=== PATIENT | male | born 1995 | race Caucasian/White ===

== ENCOUNTER 2018-06-29 01:50 | Emergency (ER) | payer SELFPAY ==
[2018-06-29 02:23] VITALS: BP 95/55; PULSE 83; TEMP 98.2; BMI 21.7
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
[2018-06-29] MEDS ORDERED: SODIUM CHLORIDE 1,000 ML IV STA (02:24)
--- NOTE | 2018-06-29 02:38 | PDOC ---
*Physical Exam - Vital Signs Last Vital Signs Temp Pulse Resp BP Pulse Ox 98.2 F 83 18 95/55 L 98 06/29/18 01:50 06/29/18 01:50 06/29/18 01:50 06/29/18 01:50 06/29/18 01:50 Medical Decision Making - Medical Decision Making 06/29/18 02:53 Patient seen by the advanced practice provider under my direct supervision. Ancillary testing reviewed as necessary. I agree with plan as outlined by the advanced practice provider. *DC/Admit/Observation/Transfer Diagnosis at time of Disposition: Closed head injury Qualifiers: Encounter type: initial encounter Qualified Code(s): S09.90XA - Unspecified injury of head, initial encounter Scalp laceration Qualifiers: Encounter type: initial encounter Qualified Code(s): S01.01XA - Laceration without foreign body of scalp, initial encounter Laceration of eyebrow, left Qualifiers: Encounter type: initial encounter Qualified Code(s): S01.112A - Laceration without foreign body of left eyelid and periocular area, initial encounter - Discharge Dispostion Disposition: HOME Condition at time of disposition: Fair - Referrals - Patient Instructions Printed Discharge Instructions: DI for Closed Head Injury Additional Instructions: Keep wound clean and dry Avoid strenuous activity/exercise to create a hot or sweaty environment until sutures are removed Reapply bacitracin ointment 2 times a day until sutures are removed Return to emergency Department or private physician in 5-7 days for suture removal May use Tylenol or Motrin for pain relief Return immediately to emergency department for redness, swelling, pain, or signs of infection Staple removal in 5-7 days - Post Discharge Activity
== END 2018-06-29 04:24 | disposition home or self-care (01) ==
LOC: JER 01:50
PROC: 0HQ1XZZ Repair Face Skin, External Approach (ICD-10-PCS; principal; 2018-06-29)
DX: S09.90XA Unspecified injury of head, initial encounter (principal); S01.112A Laceration without foreign body of left eyelid and periocular area, initial encounter; S01.01XA Laceration without foreign body of scalp, initial encounter; Y04.2XXA Assault by strike against or bumped into by another person, initial encounter; Y93.9 Activity, unspecified; Y92.9 Unspecified place or not applicable
CPT/HCPCS: 70450-TC; 72125-TC; 99284-25

== ENCOUNTER 2018-07-09 15:14 | Emergency (ER) | payer SELFPAY ==
[2018-07-09 15:21] VITALS: BP 117/67; PULSE 83; TEMP 98.2; BMI 21.1
--- NOTE | 2018-07-09 15:58 | PDOC ---
Suture Removal/Wound Check HPI - History of Present Illness Chief Complaint: Suture/Staple Removal(Here) Stated Complaint: STITCHES REMOVAL Time Seen by Provider: 07/09/18 15:32 History Source: Yes: Patient Exam Limitations: Yes: No Limitations - Previous ED Treatment Type of procedure performed on last visit: Yes: Laceration Repair Tetanus Immunization: Yes: Up to Date - Onset of Previous Treatment Date of Occurence: 07/05/18 Past History - Travel Traveled outside of the country in the last 30 days: No Close contact w/someone who was outside of country & ill: No - Past Medical History Allergies/Adverse Reactions: Allergies Allergy/AdvReac Type Severity Reaction Status Date / Time No Known Allergies Allergy Verified 06/29/18 02:18 Home Medications: Ambulatory Orders NK [No Known Home Medication] 06/29/18 COPD: No - Suicide/Smoking/Psychosocial Hx Smoking History: Current every day smoker Have you smoked in the past 12 months: No Number of Cigarettes Smoked Daily: 10 Information on smoking cessation initiated: No Hx Alcohol Use: No Drug/Substance Use Hx: No Suture Removal/Wound Check PE - Physical Exam Laceration/Wound Check Symptoms: reports: None Current Severity Level: None Maximum Severity Level: None Pain Localization: None Location of Laceration/Wound: left: Eye Pain Radiation: None *Review of Systems - Review of Systems Able to Perform ROS?: Yes Constitutional: No: Chills, Fever, Loss of Appetite HEENTM: Yes: Other (5 sutures above left eye below eyebrow. 5 poornima to scal left side of head) Respiratory: No: Cough, Orthopnea, Shortness of Breath, Wheezing, Productive cough Cardiac (ROS): No: Chest Pain, Lightheadedness, Palpitations : No: Dysuria, Urgency Neurological: No: Headache, Numbness, Paresthesia, Ataxia *Physical Exam - Vital Signs Last Vital Signs Temp Pulse Resp BP Pulse Ox 98.2 F 83 15 117/67 98 07/09/18 15:18 07/09/18 15:18 07/09/18 15:18 07/09/18 15:18 07/09/18 15:18 - Physical Exam General Appearance: Yes: Nourished, Appropriately Dressed. No: Apparent Distress HEENT: positive: EOMI, TMs Normal, Pharynx Normal Neck: positive: Supple. negative: Lymphadenopathy (R), Lymphadenopathy (L) Respiratory/Chest: positive: Lungs Clear, Normal Breath Sounds Cardiovascular: positive: Regular Rate, S1, S2 Extremity: positive: Normal Capillary Refill Moderate Sedation - Procedure Monitoring Vital Signs: Procedure Monitoring Vital Signs Temperature 98.2 F 07/09/18 15:18 Pulse Rate 83 07/09/18 15:18 Respiratory Rate 15 07/09/18 15:18 Blood Pressure 117/67 07/09/18 15:18 O2 Sat by Pulse Oximetry (%) 98 07/09/18 15:18 Medical Decision Making - Medical Decision Making 07/09/18 15:57 23 year old male here for suture and poornima removal 5 poornima removed from left side of scalp, no drainage, wound well approximated 5 sutures removed from below eye brow above left eye , no drainage or redness noted *DC/Admit/Observation/Transfer Diagnosis at time of Disposition: Visit for suture removal, Encounter for removal of poornima - Discharge Dispostion Disposition: HOME Condition at time of disposition: Good Decision to Admit order: No - Referrals - Patient Instructions Printed Discharge Instructions: DI for Suture Removal Additional Instructions: Wash face gently with soap and water Return for drainage and redness at site - Post Discharge Activity Forms/Work/School Notes: Back to Work
== END 2018-07-09 16:02 | disposition home or self-care (01) ==
LOC: JERFT 15:14
DX: Z48.817 Encounter for surgical aftercare following surgery on the skin and subcutaneous tissue (principal); Z48.02 Encounter for removal of sutures
CPT/HCPCS: 99281-25